=== PATIENT | male | born 1985 | race African-American/Black ===

== ENCOUNTER 2024-01-31 08:57 | Emergency (ER) | payer MEDICAID ==
[~2024-01-31] VITALS: Ht 182.9 cm; Wt 85.0 kg
[2024-01-31 09:04] VITALS: BP 166/79; PULSE 60; RESP 18; TEMP 98.1; O2SAT 100
[2024-01-31] MEDS ORDERED: LIDOCAINE HCL 1% 20ML VIAL INFIL ONE (11:00)
[2024-01-31] MEDS ORDERED: SULF1TAB48 MT (12:11)
[2024-01-31] MEDS ORDERED: ACET-2708 MT (12:11)
== END 2024-01-31 12:19 | disposition home or self-care (01) ==
LOC: ER 08:57
DX: L02.511 Cutaneous abscess of right hand (principal); Z98.890 Other specified postprocedural states
CPT/HCPCS: 87070; 87205; 10060; 99283; J3490; Z7610 ×2